=== PATIENT | male | born 1965 | race Asian ===

== ENCOUNTER 2018-03-24 11:52 | Emergency (ER) | payer OTHER ==
[~2018-03-24] VITALS: Ht 162.6 cm; Wt 65.0 kg
[2018-03-24 12:26] VITALS: BP 141/91
[2018-03-24] MEDS ORDERED: ATOR10TA84 PO (12:32)
[2018-03-24] MEDS ORDERED: IBUPROFEN 800 MG TABLET PO ONE (12:45)
== END 2018-03-24 13:51 | disposition home or self-care (01) ==
LOC: EMS 11:53
DX: S29.012A Strain of muscle and tendon of back wall of thorax, initial encounter (principal); E11.9 Type 2 diabetes mellitus without complications; I10 Essential (primary) hypertension; V49.49XA Driver injured in collision with other motor vehicles in traffic accident, initial encounter; Y93.89 Activity, other specified; Y92.481 Parking lot as the place of occurrence of the external cause; Y99.8 Other external cause status
CPT/HCPCS: 99282